=== PATIENT | female | born 1940 | race Caucasian/White ===

== ENCOUNTER 2019-01-15 16:06 | Inpatient (IN) | payer MEDICARE, BC ==
[~2019-01-15] VITALS: Ht 151.1 cm; Wt 78.5 kg
--- NOTE | 2019-01-15 16:10 | NUR ---
PATIENT ADMITTED FROM [facility]. ARRIVED WITH DAUGHTER AND SON BY CAR. DIAG: HYPERTENSION DUE TO BROKEN LEFT EYE BLOOD VESSEL. PATIENT IS ALERT/ORIENT. TRANSFERS FROM WHEELCHAIR TO BED WITH STAND BY ASST.
--- NOTE | 2019-01-15 16:15 | NUR ---
RECIEVED BY PRIVATE CAR FROM [facility] TO [facility] TO ROOM 1113.ORIENTED TO ROOM AND SURROUNDINGS.
[2019-01-15] MEDS ORDERED: COUMADIN2 MG PO (17:10)
[2019-01-15] MEDS ORDERED: KLONOPIN0.5 MG PO (17:11)
[2019-01-15] MEDS ORDERED: CATAPRES0.1 MG PO (17:11)
[2019-01-15] MEDS ORDERED: MIRALAX17 GM PO (17:12)
[2019-01-15] MEDS ORDERED: SENNA8.6 MG PO (17:13)
[2019-01-15] MEDS ORDERED: PROTONIX40 MG PO (17:13)
[2019-01-15] MEDS ORDERED: BUSPAR5 MG PO (17:14)
[2019-01-15] MEDS ORDERED: IMITREX50 MG PO (17:14)
[2019-01-15] MEDS ORDERED: DETROL LA4 MG PO (17:15)
[2019-01-15] MEDS ORDERED: SYNTHROID50 MCG PO (17:15)
[2019-01-15] MEDS ORDERED: LIPITOR40 MG PO (17:16)
[2019-01-15] MEDS ORDERED: HYDROCODON-ACE1 EAC2 PO (17:16)
[2019-01-15] MEDS ORDERED: AMIODARONE HCL200 MG PO (17:16)
[2019-01-15] MEDS ORDERED: FOLIC ACID1 MG PO (17:17)
[2019-01-15] MEDS ORDERED: ASPIRIN EC81 M1 PO (17:17)
[2019-01-15] MEDS ORDERED: PRISTIQ100 MG PO (17:18)
[2019-01-15] MEDS ORDERED: LIORESAL 10 MG10 MG PO (17:18)
[2019-01-15] MEDS ORDERED: CO Q-10100 MG PO (17:18)
[2019-01-15] MEDS ORDERED: GABAPENTIN100 MG PO (17:19)
[2019-01-15] MEDS ORDERED: MULTI-DAY VITAM1 TAB PO (17:19)
[2019-01-15 18:32] VITALS: BP 145/64; BMI 34.4
[2019-01-15 19:22] VITALS: BP 141/51
--- NOTE | 2019-01-15 23:39 | NUR ---
THE PATIENT APPEARED TO BE SLEEPING BUT EASILY AWOKE WHEN STAFF ENTERED HER ROOM. BED IS IN THE LOW POSITION WITH SIDERAILS X2 AND CALL LIGHT WITHIN REACH. THE PATIENT WAS EDUCATED ON AND DEMONSTRATES APPROPRIATE USE OF A CALL LIGHT. THE PATIENT APEPARS COMFORTABLE WITH NO QUESTIONS OR COCNERNS AT THIS TIME.
[2019-01-16 06:55] LABS: BASOPHILS 0.2 % (0-2); EOSINOPHILS 1.9 % (0-7); HEMATOCRIT 32.9 % (36.0-48.0); HEMOGLOBIN 10.6 g/dL (12-16); IMMATURE GRANULOCYTES 0.4 % (0-5); LYMPHOCYTES 30.5 % (15-50); MCHC 32.2 g/dL (31.0-37.0); MCV 99.4 fL (80.0-100.0); MEAN PLATELET VOLUME 11.2 fL (7.4-10.4); PLATELET COUNT 179 10x3/uL (130-400); RBC 3.31 10x6/uL (4.00-5.40); RDW 13.5 % (11.5-14.5); WBC 4.6 10x3/uL (4.8-10.8)
[2019-01-16 07:13] LABS: INR 2.44 (0.85-1.17); PROTIME 25.8 SECONDS (11.6-15.0)
[2019-01-16 07:16] LABS: ANION GAP 13.9 mmol/L (8-16); CALCIUM 8.1 mg/dL (8.5-10.1); CARBON DIOXIDE 25.7 mmol/L (21.0-32.0); POTASSIUM - SERUM 4.6 mmol/L (3.5-5.1)
--- NOTE | 2019-01-16 07:58 | NUR ---
PATIENT SITTING UP IN BED TO EAT BREAKFAST. FAMILY AT BEDSIDE. CALL LIGHT WIHTIN REACH. VOICES NO NEEDS AT THIS TIME. WILL CONTINUE WITH PLAN OF CARE
[2019-01-16 08:00] VITALS: BP 129/55
--- NOTE | 2019-01-16 11:12 | NUR ---
PATIENT GONE FROM UNIT FOR XR BARIUM SWALLOW
[2019-01-16 12:55] VITALS: Ht 151.1 cm; Wt 78.5 kg
--- NOTE | 2019-01-16 14:05 | NUR ---
PATIENT SITTING UP IN RECLINER IN ROOM. MIN ASST WITH AMBULATION
--- NOTE | 2019-01-16 15:24 | NUR ---
PATIENT IN REHAB ROOM. WORKING WITH OCCUPATIONAL THERAPIST
--- NOTE | 2019-01-16 19:35 | NUR ---
ASSESSMENT PER FLOW SHEET, PT REPORTS FLATUS, SMALL BM TODAY, AND VOIDING WITH NO DIFFICULTY, PT RATES LEFT LEG PAIN 5/10, LEFT LEG SLIGHTLY SWOLLEN, INFORMED PT THAT I WILL INFORM THE DOCTOR, PT VERBALIZES UNDERSTANDING, ASSISTED PT IN CHANGING NIGHT CLOTHES
--- NOTE | 2019-01-16 20:20 | NUR ---
PT SITTING ON SIDE OF BED, FRESH H20 SERVED, MENU PROVIDED, PT DENIES ANY NEED FOR ASSISTANCE WITH MENU
[2019-01-16 20:38] VITALS: BP 139/53
--- NOTE | 2019-01-16 21:26 | NUR ---
PT RESTING WITH EYES CLOSED, AROUSES TO SOFT VERBAL STIMULATION, ADM 2100 MEDS PER MD ORDERS, SEE EMAR, PT UP TO BR WITH ASSISTANCE VIA WALKER, PT VOIDED WITH NO DIFFICULTY, PT BACK TO BED, DENIES FURTHER NEEDS, PT'S SON AT BEDSIDE, BED IN LOW POSITION, SIDE RAILS X 2, CALL LIGHT IN REACH
--- NOTE | 2019-01-16 22:15 | NUR ---
REPORT TO [place] LPN
--- NOTE | 2019-01-16 22:48 | NUR ---
REST IN BED. EYE CLOSE. CALL LIGHT IN REACH.
--- NOTE | 2019-01-17 03:56 | NUR ---
REST IN BED. CALL LIGHT IN REACH.
--- NOTE | 2019-01-17 04:47 | NUR ---
PT IN BED LOWEST POSITION, EYES CLOSED AROUSES EASILY TO VOICE, RESPIRATIONS EVEN AND UNLABORED, NO NEEDS NOTED, FLUIDS AND CALL LIGHT WITHIN REACH I have reviewed this patient and I concur with the Shift Assessment completed by the Licensed Practical Nurse today this shift.
--- NOTE | 2019-01-17 07:15 | NUR ---
RECEIVED REPORT. LYING IN BED SUPINE EYES CLOSED RESTING. RR EVEN AND UNLABORED. CALL LIGHT WITHIN REACH, FALL PRECAUTIONS IN PLACE. WILL CONTINUE TO MONITOR
[2019-01-17 07:50] LABS: INR 1.98 (0.85-1.17); PROTIME 21.9 SECONDS (11.6-15.0)
[2019-01-17 08:00] VITALS: BP 131/59
--- NOTE | 2019-01-17 11:34 | NUR ---
SITTING UP IN BED VISITING WITH FAMILY. DENIES ANY NEEDS OR PAIN. NO SIGNS OF DISTRESS NOTED. CALL LIGHT WITHIN REACH, FALL PRECAUTIONS IN PLACE. WILL CONTINUE TO MONITOR
--- NOTE | 2019-01-17 14:07 | NUR ---
SITTING UP IN BED PARTICIPATING IN SPEECH THERAPY WITH JANELL.
[2019-01-17 19:52] VITALS: BP 133/55
--- NOTE | 2019-01-17 20:00 | NUR ---
PATIENT RECEIVED SITTING UP IN BED WATCHING TV. SON AT BEDSIDE. VITAL SIGNS & ASSESSMENT DONE. NO C/O PAIN OR DISTRESS. BEDSIDE TABLE & CALL LIGHT WITHIN REACH. WILL CONTINUE TO MONITOR.
[2019-01-17 23:40] VITALS: BP 125/51
--- NOTE | 2019-01-17 23:46 | NUR ---
PATIENT DAUGHTER CALLED FOR MOTHER'S BP. BP & PULSE TOLD TO DAUGHTER. WILL RECHECK BP LATER.
--- NOTE | 2019-01-18 01:45 | NUR ---
PATIENT C/O ANXIETY. KLONOPIN 0.25 MG GIVEN. CALL LIGHT WITHIN REACH. WILL CONTINUE TO MONITOR.
[2019-01-18 06:32] LABS: BASOPHILS 0.2 % (0-2); EOSINOPHILS 2.1 % (0-7); HEMATOCRIT 31.1 % (36.0-48.0); HEMOGLOBIN 10.1 g/dL (12-16); IMMATURE GRANULOCYTES 0.2 % (0-5); LYMPHOCYTES 31.8 % (15-50); MCH 31.6 pg (26.0-34.0); MCHC 32.5 g/dL (31.0-37.0); MEAN PLATELET VOLUME 10.8 fL (7.4-10.4); MONOCYTES 10.6 % (2-11); NEUTROPHILS 55.1 % (40-80); PLATELET COUNT 185 10x3/uL (130-400); RDW 13.2 % (11.5-14.5); WBC 4.7 10x3/uL (4.8-10.8)
[2019-01-18 06:40] LABS: ANION GAP 12.4 mmol/L (8-16); CALCIUM 8.5 mg/dL (8.5-10.1); CARBON DIOXIDE 27.8 mmol/L (21.0-32.0); CREATININE - SERUM 1.2 mg/dL (0.6-1.3); POTASSIUM - SERUM 4.2 mmol/L (3.5-5.1)
[2019-01-18 06:48] LABS: MCV 97.2 fL (80.0-100.0)
[2019-01-18 06:57] LABS: PROTIME 17.9 SECONDS (11.6-15.0)
[2019-01-18 06:58] LABS: INR 1.54 (0.85-1.17)
[2019-01-18 07:47] VITALS: BP 120/66
--- NOTE | 2019-01-18 08:15 | NUR ---
PT RESTING IN BED WITH EYES OPEN CALL LIGHT IN REACH NO PROBLEMS WILL MONITER
--- NOTE | 2019-01-18 15:26 | NUR ---
CARE TEAM MEETING: PATIENT PROGRESSING WELL IN THERAPY . TENATIVE DISCHARGE DATE IS 01/24/19. PATIENT, SON AND DAUGHTER ON CONFERENCE CALL ATTENDED MEETING. QUESTIONS AND CONCERNS WERE ADDRESSED. WILL CONTINUE TO FOLLOW WITH PATIENT.
--- NOTE | 2019-01-18 17:00 | NUR ---
I have reviewed this patient and I concur with the Shift Assessment completed by the Licensed Practical Nurse today this shift.
--- NOTE | 2019-01-18 18:04 | NUR ---
PT RESTING IN BED WITH EYES OPEN CALL LIGHT IN REACH NO PROBLEMS WILL MONITER
[2019-01-18 19:08] LABS: APPEARANCE CLEAR (CLEAR); BILIRUBIN NEGATIVE (NEGATIVE); COLOR YELLOW (YELLOW); GLUCOSE NEGATIVE (NEGATIVE); KETONE NEGATIVE (NEGATIVE); NITRITE NEGATIVE (NEGATIVE); PROTEIN NEGATIVE (NEGATIVE); SPECIFIC GRAVITY 1.015 (1.005-1.020); UROBILINOGEN NORMAL (NORMAL)
[2019-01-18 19:10] LABS: WHITE CELLS - URINE 0-5 /hpf (0-5)
[2019-01-18 19:44] VITALS: BP 109/51
--- NOTE | 2019-01-18 20:05 | NUR ---
PATIENT RECEIVED SITTING UP IN BED WATCHING TV. ASSESSMENT & VITAL SIGNS DONE. NO C/O PAIN OR DISTRESS. BED LOW. ALARM ON. CALL LIGHT WITHIN REACH. WILL CONTINUE TO MONITOR.
--- NOTE | 2019-01-18 21:10 | NUR ---
PATIENT GIVEN SHOWER. LOWER LEGS SWOLLEN. EDEMA 3 PLUS, NO PITTING. SKIN WARM. PEDAL PULSES BILATERALLY STRONG. WROTE NOTE ON THIS TO DR. MORIN.
[2019-01-18 22:00] VITALS: BP 151/64
--- NOTE | 2019-01-19 03:31 | NUR ---
I have reviewed this patient and I concur with the Shift Assessment completed by the Licensed Practical Nurse today this shift.
--- NOTE | 2019-01-19 03:41 | NUR ---
PATIENT EYES CLOSED. RESPIRATIONS 18 & EVEN. BED LOW. ALARM ON. CALL LIGHT WITHIN REACH. WILL CONTINUE TO MONITOR.
[2019-01-19 08:13] VITALS: BP 134/44
[2019-01-19 10:58] LABS: INR 1.49 (0.85-1.17); PROTIME 17.4 SECONDS (11.6-15.0)
--- NOTE | 2019-01-19 16:40 | NUR ---
SITTING UP IN BED TALKING TO VISITOR. SHE DENIES NEEDS. CALL LIGHT IN REACH
[2019-01-19 19:00] VITALS: BP 135/59
--- NOTE | 2019-01-19 20:00 | NUR ---
PATIENT RECEIVED SITTING UP IN BED. ASSESSMENT & VITAL SIGNS DONE. NO C/O PAIN OR DISTRESS. BED LOW. WALKER AT BEDSIDE. CALL LIGHT & BEDSIDE TABLE WITHIN REACH. WILL CONTINUE TO MONITOR.
--- NOTE | 2019-01-20 02:30 | NUR ---
PATIENT AWAKE EYE DROPS TO EYES PER ORDER. PATIENT TOILETED HAD VOID. PATIENT RETURNED TO BED MADE COMFORTABLE. CALL LIGHT WITHIN REACH. WILL CONTINUE TO MONITOR.
[2019-01-20 07:20] LABS: INR 1.61 (0.85-1.17); PROTIME 18.6 SECONDS (11.6-15.0)
--- NOTE | 2019-01-20 07:35 | NUR ---
PT RESTING IN BED WITH EYES OPEN CALL LIGHT IN REACH NO PROBLEMS WILL MONITERS
[2019-01-20 09:00] VITALS: BP 118/68
[2019-01-20 19:32] VITALS: BP 135/55
--- NOTE | 2019-01-20 20:21 | NUR ---
THE PATIENT WAS LYING IN BED AND WATCHING TELEVISION WHEN STAFF ENTERED HER ROOM. BED IS IN THE LOW POSITION WITH SIDERAILS X2 AND CALL LIGHT WITHIN REACH. THE PATIENT WAS EDUCATED ON AND DEMONSTRATED USE OF A CALL LIGHT. THE PATIENT APPEARS COMFORTABLE WITH NO QUESTIONS OR CONCERNS AT THIS TIME.
[2019-01-21 01:46] VITALS: BP 115/49
--- NOTE | 2019-01-21 05:12 | NUR ---
THE PATIENT APPEARS TO BE SLEEPING WITH THE BED IN THE LOW POSITION AND SIDERAILS X2.
[2019-01-21 07:25] LABS: INR 1.66 (0.85-1.17)
[2019-01-21 07:55] VITALS: BP 146/67
--- NOTE | 2019-01-21 08:15 | NUR ---
PT RESTING IN BED WITH EYES OPEN CALL LIGHT IN REACH WILL MONITER
--- NOTE | 2019-01-21 13:00 | NUR ---
I have reviewed this patient and I concur with the Shift Assessment completed by the Licensed Practical Nurse today this shift.
--- NOTE | 2019-01-21 18:22 | NUR ---
PT RESTING IN BED WITH EYES OPEN CALL LIGHT IN REACH WILL MONITER
--- NOTE | 2019-01-21 19:44 | NUR ---
THE PATIENT WAS LYING IN BED AND VISITING WITH FAMILY WHEN STAFF ENTERED HER ROOM. BED IS IN THE LOW POSITION WITH SIDERAILS X3 AND CALL LIGHT WITHIN REACH. THE PATIENT WAS EDUCATED ON THE NEED TO CALL FOR STAFF FOR ANY HELP WITH ADLS, AND DEMONSTRATES UNDERSTANDING VIA TEACHBACK METHOD. THE PATIENT APPEARS COMFORTABLE WITH NO QUESTIONS OR CONCERNS AT THIS TIME.
[2019-01-21 20:40] VITALS: BP 130/58
[2019-01-22 05:41] LABS: INR 1.78 (0.85-1.17); PROTIME 20.1 SECONDS (11.6-15.0)
--- NOTE | 2019-01-22 07:42 | NUR ---
PT RESTING IN BED WITH EYES OPEN CALL LIGHT IN REACH NO PROBLEMS WILL MONITER
--- NOTE | 2019-01-22 12:47 | NUR ---
I have reviewed this patient and I concur with the Shift Assessment completed by the Licensed Practical Nurse today this shift.
--- NOTE | 2019-01-22 17:51 | NUR ---
PT RESTING IN BED WITH EYES OPEN CALL LIGHT IN REACH WILL MONITER
--- NOTE | 2019-01-22 19:34 | NUR ---
THE PATIENT WAS LYING IN BED AND TALKING TO FAMILY WHEN STAFF ENTERED HER ROOM. BED IS IN THE LOW POSITION WITH SIDERAILS X3 AND CALL LIGHT WITHIN REACH. THE PATIENT WAS EDUCATED TO CALL FOR ASSISTANCE WHENEVER SHE NEEDS TO GET OUT OF BED. THE PATIENT DEMONSTRATES UNDERSTANDING VIA TEACHBACK METHOD. THE PATIENT APPEARS COMFORTABLE WITH NO QUESTIONS OR COCNERNS AT THIS TIME.
[2019-01-22 20:39] VITALS: BP 153/64
[2019-01-23 06:16] LABS: BASOPHILS 0.2 % (0-2); EOSINOPHILS 2.2 % (0-7); HEMATOCRIT 31.1 % (36.0-48.0); HEMOGLOBIN 10.1 g/dL (12-16); IMMATURE GRANULOCYTES 0.2 % (0-5); LYMPHOCYTES 21.7 % (15-50); MCHC 32.5 g/dL (31.0-37.0); MCV 98.4 fL (80.0-100.0); MEAN PLATELET VOLUME 10.3 fL (7.4-10.4); MONOCYTES 15.8 % (2-11); NEUTROPHILS 59.9 % (40-80); PLATELET COUNT 189 10x3/uL (130-400); RBC 3.16 10x6/uL (4.00-5.40); RDW 13.3 % (11.5-14.5); WBC 5.9 10x3/uL (4.8-10.8)
[2019-01-23 06:34] LABS: ANION GAP 10.1 mmol/L (8-16); CALCIUM 8.4 mg/dL (8.5-10.1); CARBON DIOXIDE 30.6 mmol/L (21.0-32.0); CREATININE - SERUM 1.1 mg/dL (0.6-1.3); POTASSIUM - SERUM 3.7 mmol/L (3.5-5.1)
[2019-01-23 06:38] LABS: INR 1.79 (0.85-1.17); PROTIME 20.2 SECONDS (11.6-15.0)
--- NOTE | 2019-01-23 09:06 | NUR ---
PT AM MEDS ADMINISTERED. PRISTIQ NOT AVAILABEL AT THIS TIME. PHARMACY NOTIFIED. PT DENIES NEEDS. WCTM.
[2019-01-23 09:55] VITALS: BP 123/54
[2019-01-23 20:22] VITALS: BP 184/67
--- NOTE | 2019-01-23 22:40 | NUR ---
THE PATIENT WAS LYING IN BED AND WATCHING TELEVISION WHEN STAFF ENTERED HER ROOM. BED IS IN THE LOW POSITION WITH SIDERAILS X2 AND CALL LIGHT WITHIN REACH. THE PATIENT WAS EDUCATED THE NEED TO CALL FOR ASSISTANCE WHEN SHE WANTS TO GET UP. THE PATIENT DEMONSTRATES NDERSTANDING VIA TEACHBACK METHOD. THE PATIENT APPEARS COMFORTABLE WITH NO QUESTIONS OR COCNERNS AT THIS TIME.
[2019-01-24 07:54] LABS: INR 1.87 (0.85-1.17); PROTIME 20.9 SECONDS (11.6-15.0)
[2019-01-24 08:00] VITALS: BP 145/73
--- NOTE | 2019-01-24 09:23 | NUR ---
PATIENT DISCHARGING HOME TODAY WITH FAMILY. [facility] WILL PROVIDE THERAPY AT HOME. NO NEW DME NEEDED AT THIS TIME.DR. ALDRIDGE 02/02/19 @ 9:15, FEBRUARY 07 @ 8:45. PATIENT CHOIC EFORM AND IMFM FORMS SIGNED, COPY GIVEN TO PATIENT AND FILED IN CHART. DISCHARGE INSTRUCTIONS WITH [facility] FAXED TO PCP, HOME HEALTH AND REVIEWED WITH PATIENT.
[2019-01-24] MEDS ORDERED: LASIX20 MG PO (10:00)
[2019-01-24] MEDS ORDERED: ULTRAM50 MG PO (10:01)
--- NOTE | 2019-01-24 11:45 | NUR ---
PT DISCHARGE INSTRUCTIONS REV'D AND PT STATES UNDERSTANDING. PT MEDICATIONS CALLED IN TO [facility] ON [address]. PT DISCHARGING HOME WITH SON. PT TAKEN OUT VIA WHEELCHAIR BY HOSPITAL STAFF.
--- NOTE | 2019-01-25 12:09 | RHP ---
PATIENT: JOSE STEWART MEDICAL RECORD: [id number] ACCOUNT: [id number] LOCATION:[id number] : 42 ADMISSION DATE: 01/15/19 REHABILITATION HISTORY AND PHYSICAL EXAMINATION POST ADMISSION PHYSICIAN EXAMINATION DATE OF ADMISSION: 01/15/2019. ADMITTING DIAGNOSIS: Hypertensive urgency. HISTORY OF PRESENT ILLNESS: The patient is admitted to the inpatient rehab with cardiac impairment group with hypertensive urgency. This is a 78-year-old female patient who presents to the ED at [facility] with altered mental status. She has got a history of hypertension, coronary artery disease, brain aneurysm, headaches, hematuria, hyperlipidemia, spinal stenosis. The patient has been a little bit confused over the previous days. She had been at [facility] in the inpatient hospice with a younger sister who that morning. Her family states that she was awake for an extended period of time. She was very stressed. Her systolic blood pressure was 222 when she was seen. She was admitted for hypertensive urgency. Cardiology was consulted. Her medications were adjusted. She was placed on several different medicines including clonidine, metoprolol, amlodipine, lisinopril and hydralazine. Dr. Portillo did discontinue her hydralazine, amlodipine, decreased her lisinopril and decreased her metoprolol on 01/12/2019. She continued to have high blood pressures. Cardiology continued to follow up the patient. The patient has self-care deficits, continued need for BP management, treatment as well as debility and weakness, all barriers to her discharge. The patient reports she lives with her , was completely independent with ADLs and mobility prior to this. She does on a walker, but does not use it. 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 She is currently ambulating, mod assist with rolling walker at 180 feet. States her head feels very friendly after ambulating. She is mid to mod assist for ADLs and require intensive therapy to regain her strength and get back to her prior level of functioning. COMORBIDITIES: Include hypertension, coronary artery disease, anxiety, osteoarthritis, fibromyalgia, spinal stenosis, brain aneurysm, chronic kidney disease, chronic anticoagulation. PAST MEDICAL HISTORY: Significant for anxiety, arthritis, brain aneurysm, fibromyalgia, gastroparesis, gastroesophageal reflux disease, hematuria, hypertension, irritable bowel syndrome, mitral valve prolapse, osteoarthritis, spinal stenosis. PAST SURGICAL HISTORY: Includes aneurysm stapling, cholecystectomy, heart catheterization, tonsillectomy, tubal ligation. She has had a knee arthroplasty and total replacement. ALLERGIES: CIPRO, MORPHINE, CYMBALTA, FENTANYL, IODINATED CONTRAST, LYRICA, AND SULFA. CURRENT MEDICATIONS: Include warfarin 2 mg daily. She is on a multivitamin daily, Pristiq 100 mg daily, Folic acid 1 mg daily, aspirin 81 mg daily, Detrol 4 mg daily, Imitrex 50 mg as needed, levothyroxine 50 mcg daily, Protonix 40 mg daily, Senna 2 tabs daily, polyethylene glycol 17 grams in 8 ounces of water daily, gabapentin 200 mg t.i.d., Baclofen 10 mg b.i.d., Nevis 7.5 one tab q.6 HISTORY AND PHYSICAL [id number] JOSE STEWART hours p.r.n., Lipitor 40 mg q.h.s., BuSpar 5 mg b.i.d., clonidine 0.1 mg b.i.d., Klonopin 0.25 mg t.i.d. p.r.n., and Cordarone 200 mg b.i.d. HABITS: No current alcohol or tobacco use. FAMILY HISTORY: Noncontributory. SOCIAL HISTORY: The patient hopes to return back home and get back to her prior level of functioning. REVIEW OF SYSTEMS: GENERAL: Does complain of some weakness and fatigue. HEENT: Denies cold, cough, or congestion. CARDIOVASCULAR: Denies chest pain. PHYSICAL EXAMINATION: VITAL SIGNS: Stable, afebrile. GENERAL: A somewhat obese female, in no acute distress on exam. HEENT: Normocephalic and atraumatic. Mucosa moist. NECK: Supple. No lymphadenopathy. LUNGS: Clear at this time in upper [place]. HEART: Regular rate and rhythm. No murmurs, rubs or gallops. ABDOMEN: Benign. EXTREMITIES: No clubbing, cyanosis or edema. NEUROLOGIC: She seems mainly intact. LABORATORY DATA: Her white count is 4.6, H&H of 10.6 and 32.9, and platelet count is 179. INR is 2.44. Sodium 144, potassium 4.6, BUN and creatinine of 34 and 1.0 and blood sugar is noted to be 105. ASSESSMENT: This is a 78-year-old female patient admitted to the rehab with a working diagnosis of hypertensive urgency. The patient has potential to make improvement. We instituted the following multidisciplinary therapies including but not limited to physical, occupational, respiratory, speech, nutritional services, prosthetics and orthotics. Given her complex medical condition and risk for more complications, rehabilitation services cannot be provided at a low level of care such as a care home facility. PLAN: 1. Admit to [facility] for an inpatient therapy to include the following disciplines: A. Physical therapy to improve gait, all transfer skills and bed mobility to a modified independent level. B. Occupational therapy to improve activities of daily living to a modified independent level. C. Case management to assist with discharge planning and placement options. D. Nutrition to assist with nutritional needs. E. Rehabilitation nursing to assist in monitoring the patient's underlying medical conditions and to assist with any type of bowel and bladder management. 2. The patient's current medication and medical care will be continued. 3. The patient will be placed on standard fall precautions. 4. The patient's estimated length of stay is approximately 7-10 days. 4. Discussed the patient during care team staff meeting this week and we will watch her blood pressures closely. HISTORY AND PHYSICAL [id number] JOSE STEWART TRANSINT:[id number] Voice Confirmation ID: [id number] DOCUMENT ID: [id number] 01/19/2019 Edited for oswaldo PARK. VIVIAN notes whether there has been none or any medical/functional change since admission: - No change since preadmission screen. VIVIAN attests patient continues to be appropriate for IRF: - Continues to be appropriate. RAMIRO MORIN MD at 1209 CC: [id number] DICTATION DATE: 01/16/19 0908 VEGETABLE THINNER: 01/16/19 0930 DIS IN 01/24/19 [facility] [address] [id number]
== END 2019-01-24 12:12 | disposition home health service (06) | DRG 305 ==
LOC: D.REHAB 16:06
PROVIDERS: ADMIT Emergency Medicine; ATTEND Emergency Medicine
DX: I16.0 Hypertensive urgency (principal); I25.10 Atherosclerotic heart disease of native coronary artery without angina pectoris; E78.5 Hyperlipidemia, unspecified; F41.9 Anxiety disorder, unspecified; I12.9 Hypertensive chronic kidney disease with stage 1 through stage 4 chronic kidney disease, or unspecified chronic kidney disease; N18.9 Chronic kidney disease, unspecified; Z79.01 Long term (current) use of anticoagulants; K21.9 Gastro-esophageal reflux disease without esophagitis; M19.90 Unspecified osteoarthritis, unspecified site; M79.7 Fibromyalgia; M48.00 Spinal stenosis, site unspecified